=== PATIENT | female | born 1985 | race Two or more races ===

== ENCOUNTER 2020-10-14 14:02 | Emergency (ER) | payer MEDICAID ==
[~2020-10-14] VITALS: Ht 160 cm; Wt 64.4 kg
--- NOTE | 2020-10-14 14:02 | NUR ---
called for triage. pt not in waiting room.
[2020-10-14 14:10] VITALS: BP 126/79
--- NOTE | 2020-10-14 14:10 | NUR ---
ED Nurse Note: Pt walke din to ED c/o right 4th finger pain after a ring stuck since last night. Pt has tried soap and oil. Noted with swelling and numbness to the area. AAOx4, no SOB. ERPA at bedside.
--- NOTE | 2020-10-14 14:30 | Emergency Room Report ---
History of Present Illness General Chief Complaint: Upper Extremity Injury Source: Patient Present Illness HPI 35-year-old female with no no signal past medical history here due to a ring being stuck in ring finger x1 day. Patient reports that she tried soap at home however did not work. Minimal swelling noted. No discoloration noted at this time. Patient has range of motion of the affected side. Denies any tingling numbness. Has not taken medication for symptom relief. Allergies: Coded Allergies: No Known Allergies (Unverified , 10/14/20) COVID-19 Screening Contact w/high risk pt: No Experienced COVID-19 symptoms?: No COVID-19 Testing performed [employer]: No Patient History Past Medical History: see triage record Past Surgical History: none Pertinent Family History: none Last Menstrual Period: 3 weeks ago Now: No : 1 Para: 1 Immunizations: UTD Reviewed Nursing Documentation: PMH: Agreed; PSxH: Agreed Nursing Documentation-PMH Past Medical History: No Stated History Review of Systems All Other Systems: negative except mentioned in HPI Physical Exam Vital Signs Date Time Temp Pulse Resp B/P (MAP) Pulse Ox O2 Delivery O2 Flow Rate FiO2 10/14/20 14:07 97.3 78 14 126/79 (95) 99 Room Air Sp02 EP Interpretation: reviewed, normal General Appearance: no apparent distress, alert, GCS 15, non-toxic Head: normocephalic, atraumatic Eyes: bilateral eye normal inspection, bilateral eye PERRL ENT: hearing grossly normal, normal pharynx, no angioedema, normal voice Neck: full range of motion, supple/symm/no masses Respiratory: chest non-tender, lungs clear, normal breath sounds, speaking full sentences Cardiovascular #1: regular rate, rhythm, no edema Cardiovascular #2: 2+ radial (R), 2+ radial (L) Gastrointestinal: soft Musculoskeletal: back normal, swelling - Right ring finger due to the ring being stuck. Neurologic: alert, oriented Psychiatric: judgement/insight normal, memory normal, mood/affect normal, no suicidal/homicidal ideation Skin: no rash Lymphatic: no adenopathy Procedures Additional Procedure Procedure Narrative Ring was removed with application of soap and water from right ring finger, ring was removed by Dr. Quinn Medical Decision Making PA Attestation All my diagnosis and treatment plans were reviewed ad discussed with my supervising physician Dr. Quinn Diagnostic Impression: Primary Impression: Finger swelling ER Course 35-year-old female with no no signal past medical history here due to a ring being stuck in ring finger x1 day. Patient reports that she tried soap at home however did not work. Minimal swelling noted. No discoloration noted at this time. Patient has range of motion of the affected side. Denies any tingling numbness. Has not taken medication for symptom relief. Ddx considered but are not limited to : Cellulitis, finger swelling, superficial infection, abscess Vital signs: are WNL, pt. is afebrile H&PE are most consistent with: Finger swelling due to ring stuck ORDERS: Motrin ED INTERVENTIONS: None required at this time. DISCHARGE: At this time pt. is stable for d/c to home. Will provide printed patient care instructions, and any necessary prescriptions. Care plan and follow up instructions have been discussed with the patient prior to discharge. Take medication as directed, follow primary care provider, if worsening symptoms return to the emergency room Patient was evaluated in the context of the global COVID-19 pandemic, which necessitated consideration that the patient might be at risk for infection with the SARS-COV-2 virus that causes COVID-19. Institutional protocols and algorithms that pertain to the evaluation of patients at risk for COVID-19 are in a state of rapid change based on information relieved by multiple regulatory bodies including the CDC and the federal and state organizations. These policies and algorithms were followed during the patient's care in the ED. Last Vital Signs Date Time Temp Pulse Resp B/P (MAP) Pulse Ox O2 Delivery O2 Flow Rate FiO2 10/14/20 14:10 97.3 78 14 126/79 99 Room Air Disposition: HOME, SELF-CARE Condition: Stable Scripts Ibuprofen* (MOTRIN*) 600 Mg Tablet 600 MG ORAL Q6HR, #20 TAB Prov: Greta Luo 10/14/20 Patient Instructions: Crush Injury, Fingers or Toes Additional Instructions: Take medication as directed, follow primary care provider, if worsening symptoms return to the emergency room Greta Luo Oct 14, 2020 14:29
[2020-10-14] MEDS ORDERED: IBUPROFEN600 M1 ORAL (14:31)
[2020-10-14 14:33] VITALS: BP 126/79
--- NOTE | 2020-10-14 14:33 | NUR ---
ED Nurse Note: Pt cleared by ERPA for discharge. DC instructions/prescription was given and explained to pt and verbalized understanding of teachings. All medical deviecs such as ID band removed. Pt is AAO x4, ambulatory and left with all personal belongings.
== END 2020-10-14 14:33 | disposition home or self-care (01) ==
LOC: EMR 14:30
DX: M79.89 Other specified soft tissue disorders (principal); S60.444A External constriction of right ring finger, initial encounter; W49.04XA Ring or other jewelry causing external constriction, initial encounter; Y93.9 Activity, unspecified; Y92.9 Unspecified place or not applicable
CPT/HCPCS: 99282